=== PATIENT | female | born 1990 | race Caucasian/White ===

== ENCOUNTER 2017-12-26 18:36 | Inpatient (IN) | payer BC, OTHER ==
[~2017-12-26] VITALS: Ht 162.6 cm; Wt 132.0 kg
[~2017-12-26 18:36] MED LIST: ACET325T14 PO; IBUP-11 PO; NITR100C56 PO; OXYC-302 PO
[2017-12-26] MEDS ORDERED: METOCLOPRAMIDE 5 MG/ML, 2ML ONE (19:29)
[2017-12-26] MEDS ORDERED: METOCLOPRAMIDE 5 MG/ML, 2ML IVPush ONE (19:30)
[2017-12-26] MEDS ORDERED: SODIUM CHLORIDE FLUSH 10ML SYR IVF ONE (19:30)
[2017-12-26 19:32] LABS: CULTURE INDICATED? YES; MICROSCOPIC INDICATED
[2017-12-26 19:34] LABS: HCG UR SG 1.032 (1.003-1.030)
[2017-12-26 19:40] LABS: BASOPHILS # (AUTO) 0.15 x10^3/uL (0-0.1); BASOPHILS % (AUTO) 2 % (0-1); EOSINOPHILS # (AUTO) 0.13 x10^3/uL (0-0.4); EOSINOPHILS % (AUTO) 1 % (1-7); LYMPHOCYTES # (AUTO) 2.94 x10^3/uL (1-3.4); LYMPHOCYTES % (AUTO) 32 % (22-44); MD NO; MEAN CORPUSCULAR HEMOGLOBIN 28.8 pg (27.0-34.8); MEAN CORPUSCULAR HGB CONC 34.1 g/dL (32.4-35.8); MEAN CORPUSCULAR VOLUME 84.4 fL (80-100); MEAN PLATELET VOLUME 10.1 fL (7.4-10.4); MONOCYTES # (AUTO) 0.62 x10^3/uL (0.2-0.8); MONOCYTES % (AUTO) 7 % (2-9); NEUTROPHILS # (AUTO) 5.47 x10^3/uL (1.8-6.8); NEUTROPHILS % (AUTO) 59 % (42-75); PLATELET COUNT 238 x10^3/uL (130-400); RED BLOOD COUNT 5.21 x10^6/uL (3.82-5.3); RED CELL DISTRIBUTION WIDTH 13.7 % (9.6-15.2)
[2017-12-26 19:50] LABS: ALBUMIN 3.6 g/dL (3.4-5.0); ANION GAP 10 mmol/L (5-15); CALCIUM 8.5 mg/dL (8.5-10.1); CHLORIDE 108 mmol/L (98-107)
[2017-12-26 19:54] LABS: ALANINE AMINOTRANSFERASE 35 U/L (12-78); ALKALINE PHOSPHATASE 108 U/L (45-117); BILIRUBIN,TOTAL 0.3 mg/dL (0.2-1.0); CREATININE 0.66 mg/dL (0.55-1.02); TOTAL PROTEIN 7.5 g/dL (6.4-8.2)
[2017-12-26] MEDS ORDERED: SODIUM CHLORIDE 0.9% 1,000ML IVBOLUS ONE (20:00)
[2017-12-26] MEDS ORDERED: KETOROLAC 30 MG/1 ML IVPush ONE (20:00)
[2017-12-26] MEDS ORDERED: KETOROLAC 30 MG/1 ML ONE (20:11)
[2017-12-26 21:54] LABS: CULTURE INDICATED? YES; MICROSCOPIC INDICATED
[2017-12-26] MEDS ORDERED: CEFTRIAXONE PMX 1GM/50ML 50 ML IV ONE (23:00)
[2017-12-26] MEDS ORDERED: CEFTRIAXONE PMX 1GM/50ML 50 ML ONE (23:15)
[2017-12-26] MEDS ORDERED: SODIUM CHLORIDE FLUSH 10ML SYR IVF PRN (23:30)
[2017-12-27] MEDS ORDERED: ACETAMINOPHEN 325 MG TABLET PO PRN ×2 (00:30→15:00)
[2017-12-27] MEDS ORDERED: ONDANSETRON ODT 4 MG PO PRN (00:30)
[2017-12-27] MEDS ORDERED: POLYETHYLENE GLYCOL 17 GM PACKET PO PRN (00:30)
[2017-12-27] MEDS ORDERED: hydrALAzine 20 MG/ML, 1ML IVPush PRN (00:30)
[2017-12-27] MEDS ORDERED: DOCUSATE 100 MG CAPSULE PO PRN (00:30)
[2017-12-27] MEDS ORDERED: BISACODYL 10 MG SUPP PR PRN (00:30)
[2017-12-27] MEDS ORDERED: CEFTRIAXONE PMX 1GM/50ML 50 ML IV ONE (00:30)
[2017-12-27 00:43] LABS: FREE T4 (FREE THYROXINE) 1.28 ng/dL (0.76-1.46); THYROID STIMULATING HORMONE 2.16 mIU/L (0.358-3.740)
[2017-12-27 00:53] LABS: HEMOGLOBIN A1C 5.7 % (4.2-6.3)
[2017-12-27 01:24] VITALS: BP 126/82
[2017-12-27] MEDS: ONDANSETRON 2MG/ML, 2ML IVPush PRN ×2 (01:44→10:13)
[2017-12-27] MEDS: SODIUM CHLORIDE 0.9% 1,000 ML IV SCH ×3 (01:44→21:48)
[2017-12-27] MEDS: HYDROmorphone 2 MG/ML, 1ML IVPush PRN ×2 (01:45→10:08)
[2017-12-27 07:25] VITALS: BP 113/66
[2017-12-27 10:22] VITALS: BP 117/76
[2017-12-27] MEDS ORDERED: KETOROLAC 30 MG/1 ML ONE (10:56)
[2017-12-27] MEDS: KETOROLAC 30 MG/1 ML IVPush PRN ×2 (10:57→22:39)
[2017-12-27 13:10] VITALS: BP 115/71
[2017-12-27] MEDS ORDERED: SUCCINYLCHOLINE 20 MG/ML, 10ML ONE (13:58)
[2017-12-27] MEDS ORDERED: FENTANYL PF 250 MCG/5ML ONE (13:58)
[2017-12-27] MEDS ORDERED: PROPOFOL 10 MG/ML, 20ML ONE (13:58)
[2017-12-27] MEDS ORDERED: ROCURONIUM 10MG/ML,5ML ONE (13:58)
[2017-12-27] MEDS ORDERED: DEXAMETHASONE 4 MG/ML, 1ML ONE ×2 (14:20)
[2017-12-27] MEDS ORDERED: LABETALOL 5MG/ML, 20ML IV PRN (15:00)
[2017-12-27] MEDS ORDERED: MEPERIDINE/PF 25MG/0.5ML IVPush PRN (15:00)
[2017-12-27] MEDS ORDERED: OXYcodone 5 MG/5 ML ORAL.SOL UDC PO PRN (15:00)
[2017-12-27] MEDS ORDERED: HYDROmorphone 1 MG/ML, 1ML IV PRN (15:00)
[2017-12-27] MEDS ORDERED: ONDANSETRON ODT 8 MG PO PRN (15:00)
[2017-12-27] MEDS ORDERED: hydrALAzine 20 MG/ML, 1ML IV PRN (15:00)
[2017-12-27] MEDS ORDERED: PROMETHAZINE 12.5 MG SUPP PR PRN (15:00)
[2017-12-27] MEDS ORDERED: ONDANSETRON 2MG/ML, 2ML ONE ×2 (15:06)
[2017-12-27] MEDS ORDERED: OXYcodone 5 MG/5 ML ORAL.SOL UDC ONE (15:55)
[2017-12-27] MEDS ORDERED: PROMETHAZINE 25 MG/ML, 1ML ONE (15:55)
[2017-12-27] MEDS ORDERED: FENTANYL PF 100 MCG/2ML ONE (16:08)
[2017-12-27] MEDS: FENTANYL PF 100 MCG/2ML IV PRN ×2 (16:09→16:23)
[2017-12-27] MEDS ORDERED: PROMETHAZINE 25 MG/ML, 1ML IV PRN (16:30)
[2017-12-27] MEDS ORDERED: CEFTRIAXONE PMX 2GM/50ML 50 ML IV SCH (18:00)
[2017-12-27 19:31] VITALS: BP 130/77
[2017-12-28] MEDS: ONDANSETRON 2MG/ML, 2ML IVPush PRN (00:51)
[2017-12-28 01:00] VITALS: BP 117/71
[2017-12-28 04:05] VITALS: BP 110/61
[2017-12-28] MEDS: SODIUM CHLORIDE 0.9% 1,000 ML IV SCH (04:25)
[2017-12-28 05:39] LABS: BASOPHILS # (AUTO) 0.02 x10^3/uL (0-0.1); BASOPHILS % (AUTO) 0 % (0-1); EOSINOPHILS % (AUTO) 0 % (1-7); LYMPHOCYTES # (AUTO) 1.17 x10^3/uL (1-3.4); LYMPHOCYTES % (AUTO) 14 % (22-44); MD NO; MEAN CORPUSCULAR HEMOGLOBIN 28.4 pg (27.0-34.8); MEAN CORPUSCULAR HGB CONC 33.3 g/dL (32.4-35.8); MEAN CORPUSCULAR VOLUME 85.3 fL (80-100); MEAN PLATELET VOLUME 10.6 fL (7.4-10.4); MONOCYTES # (AUTO) 0.26 x10^3/uL (0.2-0.8); MONOCYTES % (AUTO) 3 % (2-9); NEUTROPHILS # (AUTO) 7.03 x10^3/uL (1.8-6.8); NEUTROPHILS % (AUTO) 83 % (42-75); PLATELET COUNT 194 x10^3/uL (130-400); RED BLOOD COUNT 4.93 x10^6/uL (3.82-5.3); RED CELL DISTRIBUTION WIDTH 13.8 % (9.6-15.2)
[2017-12-28] MEDS: KETOROLAC 30 MG/1 ML IVPush PRN (05:49)
[2017-12-28 05:54] LABS: CHLORIDE 110 mmol/L (98-107)
[2017-12-28 06:16] LABS: ALANINE AMINOTRANSFERASE 29 U/L (12-78); ALBUMIN 2.8 g/dL (3.4-5.0); ALKALINE PHOSPHATASE 95 U/L (45-117); ANION GAP 9 mmol/L (5-15); BILIRUBIN,TOTAL 0.3 mg/dL (0.2-1.0); CALCIUM 7.8 mg/dL (8.5-10.1); CHOL/HDL RATIO 4.9; CHOLESTEROL, TOTAL 204 mg/dL (140-239); HDL CHOL % 21 % (28-40); HDL CHOLESTEROL (DIRECT) 42 mg/dL (40-60); LDL CHOLESTEROL,CALCULATED 147 mg/dL (54-169); LDL/HDL RATIO 3.5 (0.5-3.0); TOTAL PROTEIN 6.8 g/dL (6.4-8.2); TRIGLYCERIDES 73 mg/dL (50-200); VLDL CHOLESTEROL 15 mg/dL (0-25)
[2017-12-28 08:07] VITALS: BP 110/67
== END 2017-12-28 14:55 | disposition home or self-care (01) | DRG 669 ==
LOC: ED 20:14 → EDIP 23:22 → 3NE 12-27 00:16 → DCLOUNGE 12-28 14:44
PROVIDERS: ADMIT Internal Medicine; ATTEND Hospitalist
PROC: 0T9B70Z Drainage of Bladder with Drainage Device, Via Natural or Artificial Opening (ICD-10-PCS; principal; 2017-12-26)
PROC: 0TC68ZZ Extirpation of Matter from Right Ureter, Via Natural or Artificial Opening Endoscopic (ICD-10-PCS; 2017-12-27)
PROC: 0T768DZ Dilation of Right Ureter with Intraluminal Device, Via Natural or Artificial Opening Endoscopic (ICD-10-PCS; 2017-12-27)
DX: N13.2 Hydronephrosis with renal and ureteral calculous obstruction (principal); Z68.43 Body mass index [BMI] 50.0-59.9, adult; N39.0 Urinary tract infection, site not specified; E28.2 Polycystic ovarian syndrome; E66.01 Morbid (severe) obesity due to excess calories; F41.1 Generalized anxiety disorder; G43.909 Migraine, unspecified, not intractable, without status migrainosus; J45.909 Unspecified asthma, uncomplicated; Z82.49 Family history of ischemic heart disease and other diseases of the circulatory system; Z88.6 Allergy status to analgesic agent; Z88.8 Allergy status to other drugs, medicaments and biological substances; Z83.3 Family history of diabetes mellitus; Z87.442 Personal history of urinary calculi
CPT/HCPCS: 36415; 74018; 74176; 76000; 80053; 80061; 81001; 81025; 83036; 83690; 83735; 84439; 84443; 85025; 87086; 96374; 96375; J0696; J1100; J1170; J1885; J2405; J2550; J2704; J3010; C1758; C1769; C2617; J0330; J2765; J7030